=== PATIENT | male | born 1965 | race Caucasian/White ===

== ENCOUNTER 2025-07-15 09:40 | Outpatient (REF) | payer MEDICARE, MEDICAID, SELFPAY ==
[2025-07-15 12:01] LABS: Hematocrit 47.6 % (42.0-52.0); Hemoglobin 16.2 g/dl (14.0-18.0); Mean Corpuscular HGB Conc 34.0 g/dl (31.0-36.0); Mean Corpuscular Hemoglobin 31.6 pg (27.0-33.0); Mean Corpuscular Volume 93.0 fL (80.0-98.0); NRBC Abs Auto 0.000 X10*3/uL (0.0-0.012); NRBC Pct Auto 0.0 /100WBC (0.0-0.2); Platelet Count 232 X10*3/uL (160-400); Red Blood Count 5.12 X10*6/uL (4.60-5.80); White Blood Count 4.1 X10*3/uL (4.8-10.8)
--- OUTSIDE RECORDS SUMMARY | 2025-07-15 12:15 | XMS_ITS | Encounter Summary ---
Author Organization [facility] Address [address] [place] [id number] Phone Care Team Providers Care Circuit Walker Name Role Phone Bailey Tobar Primary Care Provider [phone] Unknown, Unknown Unavailable Unavailable Encounter Details Date Type Department Care Team (Late st Contact Info) Description 05/24/2022 Ophth Exam [facility] Emergency Department [address] [place] [address] Gely Arzola MD [email or web address] Social History Tobacco Use Types Packs/Day Years Used Date Smoking Tobacco: Every Day Cigarettes Smokeless Tobacco: Never Alcohol Use Standard Drinks/Week Comments Yes 0 (1 standard drink = 0.6 oz pur e alcohol) rare Sex and Gender Information Value Date Recorded Sex Assigned at Male 07/05/2019 4:38 PM EDT Legal Sex Male 4:48 PM EDT Gender Identity Male 07/05/2019 4:38 PM EDT Sexual Orientation Straight 12/29/2020 9: 51 AM EDT documented as of this encounter Functional Status * Calculated C-SSRS Risk Score (Lifetime/Recent) Answer Date of Assessment Author No Risk Indicated 05/24/2022 9:27 AM EDT Juana Langford RN * [place] Suicide Severity Rating Scale (Screener/Recent Self-Report) Question Answer Date of Assessment Author 1. Wish to be (Past 1 Month) No 022 9:27 AM EDT Juana Langford, IBRAHIMA 2. Non-Specific Active Suici mechelle Thoughts (Past 1 Month) No 05/24/2022 9:27 AM EDStefania Nino i, RN 6. Suicidal Behavior (Lifetime) No 9:27 AM Juana Todd, IBRAHIMA documented as of this encounter Plan of Treatment Upcoming Encounters Date Type Department Care Team (Late st Contact Info) Description 08/30/2025 9:45 AM EST Office Visit [facility] Optometry [address] [address] Nydia Bauer OD [address] [place] [phone] [email or web address] 09/07/2025 8:45 AM EST Office Visit [facility] Cornea [address] [address] Samuel Oshea MD [address] [place] [phone] [email or web address] 10/25/2025 11:00 AM EST Appointment [facility] Glaucoma [address] [address] Inge Field MD [address] [place] [phone] [email or web address] 10/25/2025 11:30 AM EST Office Visit [facility] Glaucoma [address] [address] Inge Field MD [address] [place] [phone] [email or web address] 11/21/2025 11:30 AM EST Office Visit [facility] [address] [address] Nelda Lemos MD [address] [place] [phone] [email or web address] 05/03/2026 10:50 AM EDT Office Visit [facility] [address] [facility] 12th [place] [address] Tony Nur MD, PhD [address] [place] [address] [email or web address] documented as of this encounter Visit Diagnoses Not on filedocumented in this encounter Care Teams Circuit Walker Relationship Specialty Start Date End Date Bailey Tobar PA [address] [place] [address] PCP - General Unknown Provider Specialty 05/24/22 Unknown, Unknown, 05/24/22 documented as of this encounter Additional Source Comments The information contained in this document represents components of the legal health record. It is not the complete legal health record.[facility]
--- OUTSIDE RECORDS SUMMARY | 2025-07-15 12:15 | XMS_ITS | Encounter Summary ---
Author Organization [facility] Address [address] [place] [address] Phone Care Team Providers Care Retail Project Merchandiser Name Role Phone Bailey Tobar Primary Care Provider [phone] Unknown, Unknown MD Unavailable Unavailable Encounter Details Date Type Department Care Team (Late st Contact Info) Description 03/23/2025 Telephone [facility] Ophthalmology [address] [address] Timo [email or web address] Social History Tobacco Use Types Packs/Day Years Used Date Smoking Tobacco: Every Day Cigarettes Smokeless Tobacco: Never Alcohol Use Standard Drinks/Week Comments Yes 0 (1 standard drink = 0.6 oz pur e alcohol) rare Education Answer Date Recorded Are you interested in more education? Not on tarik e 01/17/2023 Are you concerned about learning? Not on file 01/17/2023 No 01/17/2023 No 01/17/2023 Food Answer Date Recorded Within the past 6 months we worried whether our food would run out before we got money to buy more. Never True 03/23/2025 Within the past 6 months the food we bought just didn't last and we didn't have enough money to get more. Never True Residential Stability Answer Date Recor ded What is your housing situation today? I have julio sing 03/23/2025 How many times have you move d in the past 12 months? Zero (I did not move) 03/23/2025 Paying for Meds Answer Date Recorded Do you have trouble paying for medicines? No 03/23/2025 Paying Utility Bills Answer Date Record ed Do you have trouble paying your heating or elect ricity bill? No 03/23/2025 Transportation Answer Date Recorded Has the lack of transportati on kept you from medical appointments or from getting medications? No 03/23/2025 Digital Access Answer Date Recorded No 03/23/2025 Yes 03/23/2025 Do you have reliable internet access at home? Ye s 03/23/2025 Do you have a device (e.g., phone, tablet, computer) with a working camera? Yes 03/23/2025 Sex and Gender Information Value Date Recorded Sex Assigned at Male 07/05/2019 4:38 PM EDT Legal Sex Male 4:48 PM EDT Gender Identity Male 07/05/2019 4:38 PM EDT Sexual Orientation Straight 12/29/2020 9: 51 AM EDT documented as of this encounter Functional Status * Calculated C-SSRS Risk Score (Lifetime/Recent) Answer Date of Assessment Author No Risk Indicated 03/23/2025 8:32 PM EDT Roxana Carlson RN * [place] Suicide Severity Rating Scale (Screener/Recent Self-Report) Question Answer Date of Assessment Author 1. Wish to be (Past 1 Month) No 025 8:32 PM EDT Roxana Carlson RN 2. Non-Specific Active Suici mechelle Thoughts (Past 1 Month) No 03/23/2025 8:32 PM EDT Roxana Carlson RN 6. Suicidal Behavior (Lifetime) No 8:32 PM EDT Roxana Carlson RN documented as of this encounter Plan of Treatment Upcoming Encounters Date Type Department Care Team (Late st Contact Info) Description 08/30/2025 9:45 AM EST Office Visit [facility] Optometry [address] [address] Nydia Bauer OD [address] [place] [phone] [email or web address] 09/07/2025 8:45 AM EST Office Visit [facility] [address] [address] Samuel Oshea MD [address] [place] [phone] [email or web address] 10/25/2025 11:00 AM EST Appointment [facility] [address] [address] Inge Field MD [address] [place] [phone] [email or web address] 10/25/2025 11:30 AM EST Office Visit [facility] [address] [address] Inge Field MD [address] [place] [phone] [email or web address] 11/21/2025 11:30 AM EST Office Visit [facility] [address] [address] Nelda Lemos MD [address] [place] [phone] [email or web address] 05/03/2026 10:50 AM EDT Office Visit [facility] [address] [address] Tony Nur MD, PhD [address] [place] [phone] [email or web address] documented as of this encounter Visit Diagnoses Not on filedocumented in this encounter Care Teams Retail Project Merchandiser Relationship Specialty Start Date End Date Bailey Tobar PA [address] [place] [address] PCP - General Unknown Provider Specialty 05/24/22 Unknown, Unknown, 05/24/22 documented as of this encounter Additional Source Comments The information contained in this document represents components of the legal health record. It is not the complete legal health record.[facility]
--- OUTSIDE RECORDS SUMMARY | 2025-07-15 12:16 | XMS_ITS | Encounter Summary ---
Author Organization [facility] Address [address] [place] [address] Phone Care Team Providers Care Machine Clothing Man Name Role Phone Aleta Ashford MD Primary Care Provider [phone] Unknown, Unknown Primary Care Provider Bailey Crouch Primary Care Provider [phone] Aleta Ashford MD Unavailable [phone] Unknown, Unknown Unavailable Unavailable Encounter Details Date Type Department Care Team (Late st Contact Info) Description 06/25/2019 Procedure Pass [facility] PERIOP DEPT [address] [place] [phone] Social History Tobacco Use Types Packs/Day Years [...] AM EDT documented as of this encounter Plan of Treatment Upcoming Encounters Date Type Department Care Team (Late st Contact Info) Description 08/30/2025 9:45 AM EST Office Visit [facility] [place] [address] [address] Nydia Bauer, OD [address] [place] [address] [email or web address] 09/07/2025 8:45 AM EST Office Visit [facility] [address] [address] Samuel Oshea MD [address] [place] [phone] [email or web address] 10/25/2025 11:00 AM EST Appointment [facility] [address] [address] Inge Field MD [address] [place] [phone] [email or web address] 10/25/2025 11:30 AM EST Office Visit [facility] [address] [address] Inge Field MD [address] [place] [phone] [email or web address] 11/21/2025 11:30 AM EST Office Visit [facility] [address] [address] Nelda Lemos MD [address] [place] [phone] [email or web address] 05/03/2026 10:50 AM EDT Office Visit [facility] [address] [address] Tony Nur MD, PhD [address] [place] [phone] [email or web address] documented as of this encounter Visit Diagnoses Not on filedocumented in this encounter Care Teams Machine Clothing Man Relationship Specialty Start Date End Date Aleta Ashford MD [address] [place] [address] PCP - General Pediatrics 06/25/19 05/19/22 Unknown, Agapito, PCP - General 05/20/22 05/23/22 Bailey Tobar PA [address] [place] [address] PCP - General Unknown Provider Specialty 05/24/22 Aleta Ashford MD [address] [place] [address] Pediatrics 05/20/22 05/23/22 Unknown, Agapito, 05/24/22 documented as of this encounter Additional Source Comments The information contained in this document represents components of the legal health record. It is not the complete legal health record.[facility]
--- OUTSIDE RECORDS SUMMARY | 2025-07-15 12:16 | XMS_ITS | Encounter Summary ---
Author Organization [facility] Address [address] [place] [address] Phone Care Team Providers Care Uat Tester Name Role Phone Aleta Ashford MD Primary Care Provider [phone] Unknown, Unknown Primary Care Provider Bailey Crouch Primary Care Provider [phone] Aleta Ashford MD Unavailable [phone] Unknown, Unknown Unavailable Unavailable Encounter Details Date Type Department Care Team (Late st Contact Info) Description 07/01/2019 Ophth Exam [facility] [address] [place] [address] Destiny Simmons MD [address] [facility] 9 [place] [address] Social History Tobacco Use Types Packs/Day Years [...] 9:45 AM EST Office Visit [facility] Main [place] 243 [facility] 1st [place] [address] Nydia Bauer, OD [address] [place] [address] [email or web address] 09/07/2025 8:45 AM EST Office Visit [facility] [address] [address] Samuel Oshea MD [address] [place] [phone] Rachel@[email or web address] 10/25/2025 11:00 AM EST Appointment [facility] [address] [address] Inge Field MD [address] [place] [phone] Christopher@[facility] 10/25/2025 11:30 AM EST Office Visit [facility] [address] [address] Inge Field MD [address] [place] [phone] Christopher@[facility] 11/21/2025 11:30 AM EST Office Visit [facility] [address] [address] Nelda Lemos MD [address] [place] [address] Devante@[email or web address] 05/03/2026 10:50 AM EDT Office Visit [facility] [address] [address] Tony Nur MD, PhD [address] [place] [address] Camille@[email or web address] documented as of this encounter Visit Diagnoses Not on filedocumented in this encounter Care Teams Uat Tester Relationship Specialty Start Date End Date Aleta Ashford MD [address] [place] [address] PCP - General Pediatrics 06/25/19 05/19/22 Unknown, Unknown, PCP - General 05/20/22 05/23/22 Bailey Tobar PA [address] [place] [address] PCP - General Unknown Provider Specialty 05/24/22 Aleta Ashford MD [address] [place] [address] Pediatrics 05/20/22 05/23/22 Unknown, Unknown, 05/24/22 documented as of this encounter Additional Source Comments The information contained in this document represents components of the legal health record. It is not the complete legal health record.[facility]
--- OUTSIDE RECORDS SUMMARY | 2025-07-15 12:16 | XMS_ITS | Encounter Summary ---
Author Organization [facility] Address [address] [place] [address] Phone Care Team Providers Care Paper Mill Supervisor Name Role Phone Bailey Tobar Primary Care Provider [phone] Unknown, Unknown Unavailable Unavailable Encounter Details Date Type Department Care Team ([facility] st Contact Info) Description 03/23/2025 Ophth Exam [facility] Emergency Department [address] [place] [address] Sushil Riojas MD [address] [place] [address] [email or web address] Social History Tobacco Use Types Packs/Day Years [...] 8:32 PM EDT Roxana Carlson RN * [place] Suicide Severity Rating Scale (Screener/Recent Self-Report) Question Answer Date of Assessment Author 1. Wish to be (Past 1 Month) No 025 8:32 PM EDT Roxana Carlson, IBRAHIMA 2. Non-Specific Active Suici mechelle Thoughts (Past 1 Month) No 03/23/2025 8:32 PM EDT Roxana Carlson RN 6. Suicidal Behavior (Lifetime) No 8:32 PM EDT Roxana Carlson RN documented as of this encounter Plan of Treatment Upcoming Encounters Date Type Department Care Team (Late st Contact Info) Description 08/30/2025 9:45 AM EST Office Visit [facility] 243 [facility] 1st [place] [address] Nydia Bauer, JETT [address] [place] [address] Da@[email or web address] 09/07/2025 8:45 AM EST Office Visit [facility] [address] [address] Samuel Oshea MD [address] [place] [phone] Rachel@[email or web address] 10/25/2025 11:00 AM EST Appointment [facility] Glaucoma [address] [address] Inge Field MD [address] [place] [phone] Christopher@[facility] 10/25/2025 11:30 AM EST Office Visit [facility] Glaucoma [address] [address] Inge Field MD [address] [place] [phone] Christopher@[facility] 11/21/2025 11:30 AM EST Office Visit [facility] [address] [address] Nelda Lemos MD [address] [place] [phone] Devante@[facility] 05/03/2026 10:50 AM EDT Office Visit [facility] [address] [address] Tony Nur MD, PhD [address] [place] [phone] Camille@[facility] documented as of this encounter Visit Diagnoses Not on filedocumented in this encounter Care Teams Paper Mill Supervisor Relationship Specialty Start Date End Date Bailey Tobar PA [address] [place] [address] PCP - General Unknown Provider Specialty 05/24/22 Unknown, Unknown, 05/24/22 documented as of this encounter Additional Source Comments The information contained in this document represents components of the legal health record. It is not the complete legal health record.[facility]
--- OUTSIDE RECORDS SUMMARY | 2025-07-15 12:16 | XMS_ITS | Encounter Summary ---
Author Organization [facility] Address [address] [place] [address] Phone Care Team Providers Care Steel Cutter Name Role Phone Sanjay Patrick MD Primary Care Provider + Aleta Ashford MD Primary Care Provider [phone] Unknown, Unknown Primary Care Provider Bailey Crouch Primary Care Provider [phone] Aleta Ashford MD Unavailable [phone] Unknown, Unknown Unavailable Unavailable Encounter Details Date Type Department Care Team (Late st Contact Info) Description 12/13/2018 Ophth Exam [facility] Emergency Department [address] [place] [address] Claudia Eliazbeth MD Social History Tobacco Use Types Packs/Day Years [...] Description 08/30/2025 9:45 AM EST Office Visit [facility] Optometry Main [place] 243 [facility] 1st [place] [address] Nydia Bauer, OD [address] [place] [address] Da@[facility] 09/07/2025 8:45 AM EST Office Visit [facility] [address] [address] Samuel Oshea MD [address] [place] [phone] Rachel@[facility] 10/25/2025 11:00 AM EST Appointment [facility] [address] [address] Inge Field MD [address] [place] [phone] Christopher@[facility] 10/25/2025 11:30 AM EST Office Visit [facility] [address] [address] Inge Field MD [address] [place] [phone] Christopher@[facility] 11/21/2025 11:30 AM EST Office Visit [facility] [address] [address] Nelda Lemos MD [address] [place] [address] Devante@[facility] 05/03/2026 10:50 AM EDT Office Visit [facility] [address] [address] Tony Nur MD, PhD [address] [place] [address] Camille@[facility] documented as of this encounter Visit Diagnoses Not on filedocumented in this encounter Care Teams Steel Cutter Relationship Specialty Start Date End Date Reall Sanjay Velasquez MD PCP - General Family Medicine 12/20/15 06/24/19 Aleta Ashford MD [address] [place] [address] PCP - General Pediatrics 06/25/19 05/19/22 Unknown, Unknown, PCP - General 05/20/22 05/23/22 Bailey Tobar PA [address] [place] [address] PCP - General Unknown Provider Specialty 05/24/22 Aleta Ashford MD [address] [place] [address] Pediatrics 05/20/22 05/23/22 Unknown, UnknownMD 05/24/22 documented as of this encounter Additional Source Comments The information contained in this document represents components of the legal health record. It is not the complete legal health record.[facility]
--- OUTSIDE RECORDS SUMMARY | 2025-07-15 12:16 | XMS_ITS | Encounter Summary ---
Author Organization [facility] Address [address] [place] [address] Phone Care Team Providers Care Retail Business Development Manager Name Role Phone Sanjay Patrick MD Primary Care Provider + Aleta Ashford MD Primary Care Provider [phone] Unknown, Unknown Primary Care Provider Bailey Crouch Primary Care Provider [phone] DejonAleta johnston MD Unavailable [phone] Unknown, Unknown Unavailable Unavailable Encounter Details Date Type Department Care Team (Late st Contact Info) Description 08/07/2017 Procedure Pass [facility] Emergency Imaging, [address], Floor 1 [place] [address] Social History Tobacco Use Types Packs/Day Years Used Date Smoking Tobacco: Every Day Smokeless Tobacco: Never Alcohol Use Standard Drinks/Week [...] 9:45 AM EST Office Visit [facility] [address] [place] [address] Nydia Bauer, OD [address] [place] [phone] Da@[facility] 09/07/2025 8:45 AM EST Office Visit [facility] [address] [address] Samuel Oshea MD [address] [place] [phone] Rachel@[facility] 10/25/2025 11:00 AM EST Appointment [facility] [address] [address] Inge Field MD [address] [place] [phone] Christopher@[facility] 10/25/2025 11:30 AM EST Office Visit [facility] Glaucoma [address] [address] Inge Field MD [address] [place] [phone] Christopher@[facility] 11/21/2025 11:30 AM EST Office Visit [facility] [address] [address] Nelda Lemos MD [address] [place] [phone] Devante@[facility] 05/03/2026 10:50 AM EDT Office Visit [facility] [address] [address] Tony Nur MD, PhD [address] [place] [phone] Camille@[facility] documented as of this encounter Visit Diagnoses Not on filedocumented in this encounter Care Teams Retail Business Development Manager Relationship Specialty Start Date End Date Sanjay Patrick MD PCP - General Family Medicine 12/20/15 06/24/19 Aleta Ashford MD [address] [place] [address] PCP - General Pediatrics 06/25/19 05/19/22 Unknown, MD Agapito PCP - General 05/20/22 05/23/22 Bailey Tobar PA [address] [place] [address] PCP - General Unknown Provider Specialty 05/24/22 Aleta Ashford MD [address] [place] [address] Pediatrics 05/20/22 05/23/22 Unknown, MD Ag[place]ito 05/24/22 documented as of this encounter Additional Source Comments The information contained in this document represents components of the legal health record. It is not the complete legal health record.[facility]
--- OUTSIDE RECORDS SUMMARY | 2025-07-15 12:16 | XMS_ITS | Encounter Summary ---
Author Organization [facility] Address [address] [place] [address] Phone Care Team Providers Care Green Inspector Name Role Phone Sanjay Patrick MD Primary Care Provider + Aleta Ashford MD Primary Care Provider [phone] Unknown, Unknown Primary Care Provider Bailey Crouch Primary Care Provider [phone] Aleta Ashford MD Unavailable [phone] Unknown, Unknown Unavailable Unavailable Encounter Details Date Type Department Care Team (Late st Contact Info) Description 08/07/2017 Procedure Pass [facility] Emergency Radiology, [address], Floor 1 [place] [address] Social History Tobacco Use Types Packs/Day Years [...] AM EST Office Visit [facility] Main [address] [place] [address] Nydia Bauer, OD [address] [place] [phone] Da@[facility] 09/07/2025 8:45 AM EST Office Visit [facility] [address] [address] Samuel Oshea MD [address] [place] [phone] Rachel@[facility] 10/25/2025 11:00 AM EST Appointment [facility] Glaucoma [address] [address] Inge Field MD [address] [place] [phone] Christopher@[facility] 10/25/2025 11:30 AM EST Office Visit [facility] Glaucoma [address] [address] Inge Field MD [address] [place] [phone] Christopher@[facility] 11/21/2025 11:30 AM EST Office Visit [facility] [address] [address] Nelda Lemos MD [address] [place] [phone] Devante@[email or web address] 05/03/2026 10:50 AM EDT Office Visit [facility] [address] [address] Tony Nur MD, PhD [address] [place] [phone] Camille@[facility] documented as of this encounter Visit Diagnoses Not on filedocumented in this encounter Care Teams Green Inspector Relationship Specialty Start Date End Date Sanjay Patrick MD PCP - General Family Medicine 12/20/15 06/24/19 Aleta Ashford MD [address] [place] [address] PCP - General Pediatrics 06/25/19 05/19/22 Unknown, MD Agapito PCP - General 05/20/22 05/23/22 Bailey Tobar PA [address] [place] [address] PCP - General Unknown Provider Specialty 05/24/22 Aleta Ashford MD [address] [place] [address] Pediatrics 05/20/22 05/23/22 Unknown, MD [place]ito 05/24/22 documented as of this encounter Additional Source Comments The information contained in this document represents components of the legal health record. It is not the complete legal health record.[facility]
--- OUTSIDE RECORDS SUMMARY | 2025-07-15 12:16 | XMS_ITS | Encounter Summary ---
Author Organization [facility] Address [address] [place] [address] Phone Care Team Providers Care Senior Information Systems Architect Name Role Phone Bailey Tobar Primary Care Provider [phone] Unknown, Unknown MD Unavailable Unavailable Encounter Details Date Type Department Care Team (Late st Contact Info) Description 01/30/[address] [address] Nelda Lemos MD [address] [place] [address] [email or web address] Social History Tobacco Use Types Packs/Day Years Used Date Smoking Tobacco: Every Day Cigarettes Smokeless Tobacco: Never Alcohol Use Standard Drinks/Week Comments Yes 0 (1 standard drink = 0.6 oz pur e alcohol) rare Education Answer Date Recorded Are you interested in more education? Not on tarik e 01/17/2023 Are you concerned about learning? Not on file 01/17/2023 No 01/17/2023 No 01/17/2023 Sex and Gender Information Value Date Recorded Sex Assigned at Male 07/05/2019 4:38 PM EDT Legal Sex Male 4:48 PM EDT Gender Identity Male 07/05/2019 4:38 PM EDT Sexual Orientation Straight 12/29/2020 9: 51 AM EDT documented as of this encounter Plan of Treatment Upcoming Encounters Date Type Department Care Team (Late st Contact Info) Description 08/30/2025 9:45 AM EST Office Visit [facility] Optometry Main [address] [address] Nydia Bauer OD [address] [place] [phone] Da@[email or web address] 09/07/2025 8:45 AM EST Office Visit [facility] [address] [address] Samuel Oshea MD [address] [place] [phone] Rachel@[facility] 10/25/2025 11:00 AM EST Appointment [facility] [address] [address] Inge Field MD [address] [place] [phone] Christopher@[facility] 10/25/2025 11:30 AM EST Office Visit [facility] [address] [address] Inge Field MD [address] [place] [address] [email or web address]@[email or web address] 11/21/2025 11:30 AM EST Office Visit [facility] [address] [address] Nelad Lemos MD [address] [place] [phone] Devante@[facility] 05/03/2026 10:50 AM EDT Office Visit [facility] [address] [address] Tony Nur MD, PhD [address] [place] [phone] Camille@[email or web address] documented as of this encounter Visit Diagnoses Not on filedocumented in this encounter Care Teams Senior Information Systems Architect Relationship Specialty Start Date End Date Bailey Tobar PA [address] [place] [address] PCP - General Unknown Provider Specialty 05/24/22 Unknown, Unknown, 05/24/22 documented as of this encounter Additional Source Comments The information contained in this document represents components of the legal health record. It is not the complete legal health record.[facility]
--- OUTSIDE RECORDS SUMMARY | 2025-07-15 12:17 | XMS_ITS | Clinical Summary ---
Author Organization [facility] Address [address] [place] [id number] Phone Care Team Providers Care Product Distribution Specialist Name Role Phone Bailey Tobar Primary Care Provider [phone] Unknown, Unknown MD Unavailable Unavailable Allergies No known active allergies Medications * This document contains information received from the source organization and may not represent a complete record from that organization. SUMATRIPTAN SUCCINATE (IMITREX ORAL) Take by mouth as needed. Active ibuprofen (ADVIL,MOTRIN) 800 MG tablet Take 800 mg by mouth every 8 (eight) hours as needed for pain (specific location in comments) (headaches). Active acetaminophen (TYLENOL) 325 mg tablet Take 650 mg by mouth every 6 (six) hours as needed for headache. Unknown dose, unknown frequency, Opth MD recommended pt take acetaminophen/ib uprofen to assist with headache pain Active DULoxetine (CYMBALTA) 60 MG capsule Take 60 mg by mouth daily. Active gabapentin (NEURONTIN) 600 MG tablet Take 600 mg by mouth 3 (three) times a day. Active olopatadine (PATADAY) 0.2 % Drop Place 1 drop into each eye daily as needed. 10 mL 12 3 Active moxifloxacin (VIGAMOX) 0.5 % ophthalmic solution Place 1 drop into the right eye 4 (four) times a day. 6 mL 12 5 Active prednisoLONE acetate (PRED FORTE) 1 % ophthalmic suspension Place 1 drop into the right eye 2 (two) times a day. Shake well 10 mL 11 5 Active timolol (TIMOPTIC) 0.5 % ophthalmic solution Place 1 drop into the right eye 2 (two) times a day. 10 mL 12 5 Active Active Problems Problem Noted Date Diagnosed Date Inadequate pain control 07/01/2019 PONV (postoperative nausea and vomiting) 019 Depression 06/25/2019 Headache 08/07/2017 Amblyopia 07/24/2017 H/O eye surgery 07/24/2017 History of corneal transplant 07/24/2017 Chronic angle-closure glaucoma of both eyes, sev ere stage 12/29/2015 Overview (12/29/2015): Kpro OD 2005 followed by h/o eye trauma - hit by corner of aje 08/02/15 OD h/o vitreous hem OD no f/h glaucoma s/p Ahmed OD (temporal) 2003, nasal 2006 ? 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 Per cornea Follow-up in 4 months IOP check -- sooner PRN Refer to CL for replacing BCL Assessment & Plan (10/09/2016 3:31 PM EST): Visual bhandari: [place] OU Optic nerve assessment: Better image OD today and appears healthy OS Intraocular pressure is at goal currently Plan: Ophthalmic medications continued - continue cosopt BID OD - hold brimonidine BID, latanoprost qhs for now OD - continue polytrim BID, PF BID. Per cornea Follow-up in 4 months IOP check -- sooner PRN Seeing Dr. Judd next month -Lynsey Lara MD Assessment & Plan (05/03/2016 1:22 PM EDT): Visual bhandari: not done today Optic nerve assessment: Better image OD today and appears healthy OS Intraocular pressure is at goal currently Plan: Ophthalmic medications continued - continue cosopt BID OD - hold brimonidine BID, latanoprost qhs for now OD - continue polytrim BID, PF BID. Per cornea Follow-up in in 3 months with GVF -- sooner PRN Seeing Dr. Oshea next month -Lynsey Lara MD Assessment & Plan (12/29/2015 2:20 PM EDT): Visual bhandari: not done today Optic nerve assessment: Poor image OD but appears healthy OS Intraocular pressure is at goal currently Plan: Ophthalmic medications continued - continue cosopt BID OD - hold brimonidine BID, latanoprost qhs for now OD - continue polytrim BID, PF BID. Defer to cornea Follow-up in in 3 months with visual field (GVF) -- sooner PRN Seeing Dr. 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; Amblyopia of left eye; Aphakia of both eyes; Chronic angle-closure glaucoma of both eyes, severe stage; History of allergy; H/O eye surgery; Refractive error; Posterior vitreous detachment of left eye; H/O vitrectomy; Allergic conjunctivitis of both eyes 05/31/2025 10:45 AM EDT Office Visit [address] [address] Gisela Arzola MD History of corneal transplant (Primary Dx) 04/26/2025 2:10 PM EDT Office Visit [facility] [address] [address] Tony Nur MD, PhD Vitreous floaters of right eye (Primary Dx); History of corneal transplant; Chronic angle-closure glaucoma of both eyes, severe stage 04/26/2025 11:10 AM EDT Office Visit [facility] Glaucoma [address] [address] Inge Field MD Chronic angle-closure glaucoma of both eyes, mild stage (Primary Dx); Cornea replaced by transplant from Last 3 Months Immunizations Immunization Administration Dates Next Due COVID-19 (Pre-07/14) Pfizer Vaccine, mRNA, PF ,01/07/2021 Family History Medical History Relation Comments Glaucoma Neg Hx Social History Tobacco Use Types Packs/Day Years Used Date Smoking Tobacco: Every Day Cigarettes Smokeless Tobacco: Never Tobacco Cessation:Ready to Q uit: No; Counseling Given: Yes Alcohol Use Standard Drinks/Week Comments Yes 0 [...] Orientation Straight 12/29/2020 9: 51 AM EDT Last Filed Vital Signs Vital Sign Reading Time Taken Comments Blood Pressure 141/96 03/23/2025 8:32 PM EDT Pulse 73 03/23/2025 8:32 PM EDT Temperature 36.4 C (97.5 F) 03/23/2025 8:32 PM EDT Respiratory Rate 18 03/23/2025 8:32 PM EDT Oxygen Saturation 96% 03/23/2025 8:32 PM EDT Inhaled Oxygen Concentration - - Weight 70.3 kg (155 lb) 03/23/2025 8:32 PM EDT Height 170.2 cm (5' 7 ) 03/23/2025 8:32 PM EDT Body Mass Index 24.28 03/23/2025 8:32 PM EDT Plan of Treatment Upcoming Encounters Date Type Department Care Team (Late st Contact Info) Description 08/30/2025 9:45 AM EST Office Visit [facility] Optometry [address] [address] Nydia Bauer OD [address] [place] [phone] [email or web address] 09/07/2025 8:45 AM EST Office Visit [facility] [address] [address] Samuel Oshea MD [address] [place] [phone] [email or web address] 10/25/2025 11:00 AM EST Appointment [address] [address] Inge Field MD [address] [place] [phone] [email or web address] 10/25/2025 11:30 AM EST Office Visit [address] [address] Inge Field MD [address] [place] [phone] [email or web address] 11/21/2025 11:30 AM EST Office Visit [address] [address] Nelda Lemos MD [address] [place] [phone] [email or web address] 05/03/2026 10:50 AM EDT Office Visit [address] [address] Tony Nur MD, PhD [address] [place] [phone] [email or web address] Health Maintenance Due Date Last Done Comments Adult Td,Tdap Booster 1963 LIPID PANEL 1963 DEPRESSION SCREENING 1975 SMOKING Hx and SMOKELESS TOBACCO SCREENING 1976 HEPATITIS C SCREENING 1981 HIV ONE-TIME SCREENING (18-6 5 YEARS) 1981 COLOGUARD 2008 COLONOSCOPY 2008 COLORECTAL CANCER SCREENING 2008 FIT TEST 2008 FOBT 2008 SIGMOIDOSCOPY 2008 VIRTUAL COLONOSCOPY 2008 ZOSTER VACCINES (1 of 2) 2013 PNEUMOCOCCAL VACCINES (50+ years) (2 of 2 - PCV) 09/30/2018 09/30/2017 INFLUENZA VACCINE (#1) 2025 07/12/2019 COVID-19 VACCINE (3 - 2024-2 6 season) 2025 01/31/2021, 01/07/2021 RSV VACCINE (1 - 1-dose 75+ series) 2038 HEPATITIS A VACCINES Aged Out No long er eligible based on patient's age to complete this topic HIB VACCINES Aged Out No longer eligi ble based on patient's age to complete this topic MENINGOCOCCAL VACCINES (ACWY) Aged Out No longer eligible based on patient's age to complete this topic MENINGOCOCCAL VACCINES (B) Aged Out N o longer eligible based on patient's age to complete this topic Medical Devices Implanted Type Area Food Counselor Device Identifier Shelf Expiration Date Model / Serial / Lot Kpro Glaucoma Shunt Description:Kpro plastic tub e shunt for Glaucoma Keratoprosthesis - [id number] Implanted:Qty: 1 on 06/25/2019 by Abad Judd MD at [facility] 03/24/2021 / [id number] Tissue Corneal - [id number] Implanted:Qty: 1 on 06/25/2019 by Abad Judd MD at [facility] 07/06/2019 / [id number] / [id number] Procedures Procedure Name Priority Date/Time Associated Diagnosis Comments B-SCAN ULTRASOUND - OD - RIGHT EYE Routine 04/26/2025 2:15 PM EDT Vitreous floaters of right eye OCT, OPTIC NERVE - OU - BOTH EYES Routine 04/26/2025 10:28 AM EDT Chronic angle-closure glaucoma of both eyes, mild stage from Last 3 Months Results * B-Scan Ultrasound - OD - Right Eye (04/26/2025 2:15 PM EDT) Anatomical Region Laterality Modality Head ECHOGRAPHY Narrative 04/26/2025 3:33 PM EDT Technique: closed lids. Retrobulbar echo pattern: within normal limits. Testing performed by: Marcelo Valencia CESAR, VITALIY SALMERON. Notes Vitreous has mild hyperechoic opacities consistent with complete posterior vitreous detachment; no diffuse or focal concentrated opacities to suggest vitreous hemorrhage. Retina is flat and attached 360 degrees. Echolucent space in the orbit is consistent with glaucoma drainage device implant. Tony Nur MD, PhD OPHTHALMOLOGY IMAGING F inal Result * OCT, Optic Nerve - OU - Both Eyes - (04/26/2025 10:28 AM EDT) Narrative ALENA - 04/26/2025 10:57 AM EDT Right Eye Quality: Good. Change: Stable. Optic nerve head and nerve fiber layer: Normal. Ganglion cell or retinal thickness: Abnormal. Left Eye Quality: Good. Change: Baseline. Optic nerve head and nerve fiber layer: Normal. Ganglion cell or retinal thickness: Abnormal. General Details Testing performed by: Deb Chairez Inge Field MD OPHTHALMOLOGY IMAGING Final Re sult ALENA from Last 3 Months Insurance MEDICARE PART A & B [facility] MEDICARE PART A & B Member Subscriber Plan / Payer (Ef fective 1999-) Name:Gatito Servin Member ID:[id number] Relation to Subscriber:Self Name:Gatito Servin Subscriber ID:[id number] Payer ID:[id number] Group ID:Not on file Type:Medicare Address: [employer] [address] B Member Subscriber Plan / Payer (Ef fective 1999-) Name:Gatito Servin Member ID:[id number] Relation to Subscriber:Self Name:Gatito Servin Subscriber ID:[id number] Payer ID:[id number] Group ID:Not on file Type:Medicare Address: [employer] [address] [place] [address] [place] [address]HEALTH MEDICARE PART A & B [facility] MEDICARE PART A & B [facility] MEDICARE PART A & B [facility] MEDICARE PART A & B [address] [place], [place] [address]HEALTH MEDICARE PART A & [facility] Advance Directives For more information, please contact: [phone] (9AM - 5PM [facility], Friday-Friday) Documents on File Type Date Recorded Patient Flame Hardening Machine Setter Expl anation Healthcare Proxy 06/28/2019 12:30 PM * Full Code (Presumed) (Latest Code Status on File) Date Activated Date Inactivated Comments 07/01/2019 12:08 AM 07/01/2019 12:59 PM Care Teams Product Distribution Specialist Relationship Specialty Start Date End Date Bailey Tobar PA [address] [place] [address] PCP - General Unknown Provider Specialty 05/24/22 Unknown, Unknown, 05/24/22 Additional Source Comments The information contained in this document represents components of the legal health record. It is not the complete legal health record.[facility]
[2025-07-15 12:44] LABS: Alanine Aminotransferase 23 U/L (0-40); Albumin Level 4.8 g/dL (3.5-5.0); Alkaline Phosphatase 73 U/L (39-117); Anion Gap 12 (12-20); Aspartate Amino Transferase 28 U/L (5-37); Blood Urea Nitrogen 10 mg/dL (9-16); Calcium 9.4 mg/dL (8.4-10.2); Carbon Dioxide 31 mmol/L (22-29); Chloride 104 mmol/L (96-108); Cholesterol 173 mg/dL (<200); Estimated Glomerular Filt Rate > 60; HDL Cholesterol 45 mg/dL (>40); Iron 184 mcg/dL (45-160); Percent Iron Saturation 63 % (15-50); Potassium 4.5 mmol/L (3.3-5.1); Sodium 142 mmol/L (135-145); Total Iron Binding Capacity 294 mcg/dL (228-428); Total Protein 8.0 g/dL (6.5-8.0); Triglycerides 110 mg/dL (<150); Unsaturated Iron Binding 110 ug/dL
[2025-07-15 12:46] LABS: Prostate Specific Antigen 1.34 ng/mL (<0.05-4.0)
[2025-07-16 03:54] LABS: HIV Num 1 0.05 S/CO (0.00-0.99); ~HepC Num1 0.07 S/CO (0.00-0.79); ~Hepatitis C Antibody Nonreactive (Nonreactive)
== END 2025-07-15 09:41 | disposition home or self-care (01) ==
LOC: HO.LAB 09:40
PROVIDERS: PCP Internal Medicine; Visit Provider Internal Medicine
DX: Z00.00 Encounter for general adult medical examination without abnormal findings (principal); Z12.5 Encounter for screening for malignant neoplasm of prostate; Z79.899 Other long term (current) drug therapy; Z97.0 Presence of artificial eye; B07.8 Other viral warts; F17.290 Nicotine dependence, other tobacco product, uncomplicated
CPT/HCPCS: 36415; 80053; 80061; 82306; 83036; 83540; 84153; 84443; 85027; 86803; 87389; 99386

== ENCOUNTER 2025-07-15 09:40 | Outpatient (AMB) | payer MEDICARE, MEDICAID, SELFPAY ==
--- NOTE | 2025-07-15 09:47 | A.OFFPC_ITS ---
Vital Signs 07/15/25 09:49 Height 5 ft 7.32 in Weight 151 lb 2 oz BMI 23.4 BP 100/78 Blood Pressure Location Lt brachial Position Sitting Pulse 89 Pulse Source Pulse Oximeter Temp 97.1 F Temp Source Temporal Artery Scan Pulse Oximetry (%) 98 Oxygen Delivery Method Room Air Intake Visit Reasons: establish care Intake Note: Patient is a new patient here to [facility] care for Eye issues, Sleep apnea, Chronic pain in back and hip. Transferring care from Dr Rosalie Ashford ([facility]). Medical records have been requested and have not received. Screwhead Polisher Required: No Exterior Designer: Not Required per policy Accompanied by: Self / Same As Patient Allergies No Known Allergies Allergy (Verified 07/15/25 09:57) Medication List - Last Reconciled 07/15/25 by Jovanni Neri MD moxifloxacin 0.5% 1 drp ophthalmic-Right QID prednisolone acetate 1% 1 drp ophthalmic-Right BID timolol maleate 0.5% 1 drp ophthalmic-Right BID Tobacco use date assessed: 07/15/25 Dental Screening Dental Screen Date: 07/15/25 Did you have a dental visit in the last 12 months?: No Did you have a dental problem in the last 6 months where you did not have access to dental care?: No Was dental information given to patient?: No HPI HPI Comments History of Present Illness Details The patient is a 60-year-old male presenting to [facility]. 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 He also has glaucoma The patient reports chronic back pain involving the L4, L5, S1, and S2 vertebrae. He previously received cortisone injections approximately 2-3 years ago for pain management. The patient has a history of smoking and currently vapes. He has been referred to a multi skilled operator due to his smoking history. A lump on the neck has been present for years, described as a small, persistent bump. The patient has skin tag on his left forearm and under his right armpit that has been bothering him. The patient has been referred to dermatology for further evaluation. [facility] Surgical History (Updated 07/15/25 @ 10:01 by JSOE Strauss) History of ear surgery History of eye surgery Social History (Updated 07/15/25 @ 10:01 by JOSE Strauss) Housing: House Alcohol intake: current Alcohol intake frequency: a few times a month Patient Tobacco Use Status: Former Tobacco user e-Cigarette/Vaping Use: Currently Using Second Hand Smoke Exposure: No service: No Current occupational status: disabled Cognitive needs: Yes (Sight cane) Hearing needs: No Vision needs: Yes (Glasses) Questionnaire PHQ-9 Over the last 2 weeks, how often have you been bothered by any of the following problems? 1. Little interest or pleasure in doing things: not at all 2. Feeling down, depressed, or hopeless: not at all 3. Trouble falling or staying asleep, or sleeping too much: not at all 4. Feeling tired or having little energy: not at all 5. Poor appetite or overeating: not at all 6. Feeling bad about yourself - or that you are a failure or have let yourself or your family down: not at all 7. Trouble concentrating on things, such as reading the newspaper or watching television: not at all 8. Moving or speaking so slowly that other people could have noticed. Or the opposite - being so fidgety or restless that you have been moving around a lot more than usual: not at all 9. Thoughts that you would be better off or of hurting yourself in some way: not at all Total score: 0 Depression Screening Interpretation: Negative Depression Screening Done: Yes Source: Developed by Drs. Sander Walker, Kathya Li, Jayson aSinz and colleagues, with an educational nydia from [employer]. Thrive Questionnaire Date Thrive assessed: 07/15/25 I am a: Patient What is your living situation today?: I have a steady place to live Within the past 12 months, did the food you bought not last and you didn't have the money to get more?: Never true Within the past 12 months, did you worry whether your food would run out before you got money to buy more?: Never true Do you have trouble paying for medicines?: No Do you have trouble getting transportation to medical appointments?: No Do you have trouble paying your heating and electricity bill?: No Do you have trouble taking care of your child, family member or friend?: No Do you have trouble with day-to-day activities such as bathing, preparing meals, shopping, managing finances, etc.?: No Are you currently unemployed and looking for a job?: No Are you interested in more education?: No Please select the resources that you would like help with: None Currently or been in a relationship where the following occur: No concerns reported THRIVE Score: 0 AUDIT C Alcohol Use Questionnaire (AUDIT-C) 1. How often do you have a drink containing alcohol?: Never Total Score: 0 PALMA-7 AMB Questionnaire PALMA-7 Date PALMA - 7 assessed: 07/15/25 Feeling nervous, anxious, or on edge: 0 = Not at all Not being able to stop or control worryin = Not at all Worrying too much about different things: 0 = Not at all Trouble relaxin = Not at all Being so restless that it is hard to sit still: 0 = Not at all Becoming easily annoyed or irritable: 0 = Not at all Feeling afraid as if something awful might happen: 0 = Not at all Total PALMA-7 score (0-4 normal; 5-9 mild; 10-14 moderate; 15-21 severe): 0 Source: Developed by Drs. Sander Walker, Kathya Li, Jayson Sainz and colleagues, with an educational nydia from [employer]. Review of Systems Const Details: Positives besides what was mentioned in HPI are in BOLD Constitutional: No Weight Change, No Fever, No Chills, No Night Sweats, No Fatigue, No Malaise ENT/Mouth: No Hearing Changes, No Ear Pain, No Nasal Congestion, No Sinus Pain, No Hoarseness, No sore throat, No Rhinorrhea, No Swallowing Difficulty Eyes: No Eye Pain, No Swelling, No Redness, No Foreign Body, No Discharge, No Vision Changes Cardiovascular: No Chest Pain, No SOB, No PND, No Dyspnea on Exertion, No Orthopnea, No Claudication, No Edema, No Palpitations Respiratory: No Cough, No Sputum, No Wheezing, No Smoke Exposure, No Dyspnea Gastrointestinal: No Nausea, No Vomiting, No Diarrhea, No Constipation, No Pain, No Heartburn, No Anorexia, No Dysphagia, No Hematochezia, No Melena, No Flatulence, No Jaundice Genitourinary: No Dysmenorrhea, No DUB, No Dyspareunia, No Dysuria, No Urinary Frequency, No Hematuria, No Urinary Incontinence, No Urgency, No Flank Pain, No Urinary Flow Changes, No Hesitancy Musculoskeletal: No Arthralgias, No Myalgias, No Joint Swelling, No Joint Stiffness, No Back Pain, No Neck Pain, No Injury History Skin: No Skin Lesions, No Pruritis, No Hair Changes, No Breast/Skin Changes, No Nipple Discharge Neuro: No Weakness, No Numbness, No Paresthesias, No Loss of Consciousness, No Syncope, No Dizziness, No Headache, No Coordination Changes, No Recent Falls Psych: No Anxiety/Panic, No Depression, No Insomnia, No Personality Changes, No Delusions, No Rumination, No SI/HI/AH/VH, No Social Issues, No Memory Changes, No Violence/Abuse Hx., No Eating Concerns Heme/Lymph: No Bruising, No Bleeding, No Transfusions History, No Lymphadenopathy Endocrine: No Polyuria, No Polydipsia, No Temperature Intolerance Physical exam (Primary Care) Vital Signs: Last Vital Signs Temp 97.1 F 07/15/25 09:49 Pulse 89 07/15/25 09:49 BP 100/78 07/15/25 09:49 Pulse Ox 98 07/15/25 09:49 Oxygen Delivery Method Room Air 07/15/25 09:49 BMI result Body Mass Index 23.4 Tobacco/Smoking Status: Tobacco use Status Tobacco use date assessed 07/15/25 07/15/25 10:02 Patient Tobacco Use Status Former Tobacco user 07/15/25 10:02 Tobacco use type 07/15/25 10:02 e-Cigarette/Vaping Use Currently Using 07/15/25 10:02 PHQ-9: PHQ-9 Score PHQ-9: Total score 0 07/15/25 10:02 Depression Screening Interpretation: Negative Thrive Assessment: Date of Thrive Assessment Date Thrive assessed 07/15/25 07/15/25 10:02 Currently or been in a relationship where the following occur: No concerns reported Const Other: Pertinent findings are in BOLD GENERAL APPEARANCE NAD, activity normal for age, well developed/ well nourished, no cyanosis, pallor, or diaphoresis. EYES lids/conjunctiva normal. Kerato prosthesis in right eye. EARS/NOSE/THROAT Mucous membranes moist, nares normal, lips/teeth normal uvula midline without oral pharyngeal erythema, exudate or swelling TMs normal bilaterally. No lymphangitis/lymphedema. HEAD/NECK normocephalic atraumatic, no facial trauma, neck is supple. RESPIRATORY respiratory effort normal, speaks in full sentences, no tripod position, no accessory muscle use. Lungs clear to auscultation without rhonchi, wheezes, rales CARDIAC Regular rate and rhythm, no edema. ABDOMINAL Soft, ND/NT. No evidence of fluid wave. No pulsatile masses on exam, rebound tenderness, Swift sign or pain over Mcburney's point. MUSCLES/EXTREMITIES No abnormal range of motion, no swelling. SKIN Warm, pink and dry. No rashes, dermatoses, petechiae or lesions. Skin wart under armpit and on forearm. NEUROLOGICAL Speech is clear and appropriate. Normal level of consciousness. Gait and coordination are normal. 5/5 strength in all extremities. PSYCH Normal mood and affect. 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 Ordered today. Shingles 2 doses when >50 yo. Declined. COVID: two doses. Completed in the past. Pneumococcal: 19-64. Declined. Flu vaccine: Declined. Tdap: Patient reports had it within the past 10 years. Colonoscopy: 45-75. PAtient declined colonoscopy. I will order Cologuard for him and he will think about it if he wants to get it or not. AAA: 65 -75. NI[address] CT lun - 80. Smoking history. Pulm referral. PSA: 50 -70 every two years. 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 Potential cold nitrogen. (4) Tobacco use disorder: Code(s): F17.200 - Nicotine dependence, unspecified, uncomplicated Category: Medical Plan: Pulm referral for lung cancer screening. Plan During the visit, I discussed the importance of regular checkups and addressed the patient's concerns regarding his chronic back pain and eye conditions. I recommended referrals to dermatology for the skin warts and pulmonology due to his smoking history. Orders: Orders Complete Blood Count no Diff Today Z00.00 - Encounter for general adult medical examination without abnormal findings Comprehensive Met. Panel Today Z00.00 - Encounter for general adult medical examination without abnormal findings HIV Ab/Ag Today Z00.00 - Encounter for general adult medical examination without abnormal findings TSH reflex Free T4 Today Z00.00 - Encounter for general adult medical exam ination without abnormal findings Hemoglobin A1c Today Z00.00 - Encounter for general adult medical examination without abnormal findings IRON PROFILE Today Z00.00 - Encounter for general adult medical examination without abnormal findings Vitamin D 25-OH Total Today Z00.00 - Encounter for general adult medical examin ation without abnormal findings Lipid Panel Today Z00.00 - Encounter for general adult medical examination without abnormal findings Prostate Specific Antigen Today Z00.00 - Encounter for general adult medical examination without abnormal findings Hepatitis C Antibody Reflex Today Z00.00 - Encounter for general adult medical examination without abnormal findings Referrals Dermatology Referral B07.9 - Viral wart, unspecified Pulmonology Referral F17.200 - Nicotine dependence, unspecified, uncomplicated
[2025-07-15 09:49] VITALS: BP 100/78; PULSE 89; TEMP 36.2; O2SAT 98; BMI 23.4
--- OUTSIDE RECORDS SUMMARY | 2025-07-15 10:44 | XMS_ITS ---
Author Name [facility] Organization Unknown Care Team Organization Name Specialty Phone Email Start Date End Da te [facility] NULL Primary Care 07/30/2022 05/10/2024
== END 2025-07-15 10:28 | disposition home or self-care (01) ==
PROVIDERS: PCP Internal Medicine; Visit Provider Internal Medicine
DX: Z00.00 Encounter for general adult medical examination without abnormal findings (principal); Z97.0 Presence of artificial eye; B07.8 Other viral warts; F17.200 Nicotine dependence, unspecified, uncomplicated